=== PATIENT | male | born 1990 | race Two or more races ===

== ENCOUNTER 2016-06-07 11:25 | Emergency (ER) | payer MEDICAID, OTHER ==
[~2016-06-07] VITALS: Ht 180.3 cm; Wt 124.7 kg
[2016-06-07 12:10] VITALS: BP 149/80
== END 2016-06-07 12:37 | disposition home or self-care (01) ==
LOC: ER 11:29
DX: M76.9 Unspecified enthesopathy, lower limb, excluding foot (principal)

== ENCOUNTER 2016-08-23 02:06 | Emergency (ER) | payer MEDICAID ==
[~2016-08-23] VITALS: Ht 180.3 cm; Wt 136.1 kg
[2016-08-23] MEDS ORDERED: IBUPROFEN 800 MG TAB PO ONE ×2 (02:15→03:30)
[2016-08-23] MEDS ORDERED: KETOROLAC TROMETH 60MG/2ML VIAL IM ONE ×2 (03:54→04:15)
[2016-08-23 04:15] VITALS: BP 133/82
== END 2016-08-23 03:59 | disposition home or self-care (01) ==
LOC: ER 02:10
DX: S83.91XA Sprain of unspecified site of right knee, initial encounter (principal); G89.29 Other chronic pain; X58.XXXA Exposure to other specified factors, initial encounter; Y93.89 Activity, other specified; Y92.89 Other specified places as the place of occurrence of the external cause; Y99.8 Other external cause status
CPT/HCPCS: 73562; 96372; 99284; J1885

== ENCOUNTER 2016-12-03 15:10 | Emergency (ER) | payer MEDICAID ==
[~2016-12-03] VITALS: Ht 180.3 cm; Wt 136.1 kg
[2016-12-03 15:15] VITALS: BP 143/95
== END 2016-12-03 18:10 | disposition home or self-care (01) ==
LOC: ER 15:10
DX: S61.411A Laceration without foreign body of right hand, initial encounter (principal); W22.8XXA Striking against or struck by other objects, initial encounter; Y93.89 Activity, other specified; Y92.89 Other specified places as the place of occurrence of the external cause; Y99.8 Other external cause status
CPT/HCPCS: 12002

== ENCOUNTER 2016-12-05 09:54 | Emergency (ER) | payer MEDICAID ==
[~2016-12-05] VITALS: Ht 180.3 cm; Wt 136.1 kg
[2016-12-05 10:30] VITALS: BP 117/78
== END 2016-12-05 10:37 | disposition home or self-care (01) ==
LOC: ER 09:54
DX: S61.411D Laceration without foreign body of right hand, subsequent encounter (principal); X58.XXXD Exposure to other specified factors, subsequent encounter; Y99.8 Other external cause status; Y92.89 Other specified places as the place of occurrence of the external cause

== ENCOUNTER 2016-12-13 10:29 | Emergency (ER) | payer MEDICAID ==
[~2016-12-13] VITALS: Ht 180.3 cm; Wt 136.1 kg
[2016-12-13 11:15] VITALS: BP 125/78
== END 2016-12-13 11:30 | disposition home or self-care (01) ==
LOC: ER 10:29
DX: S61.411D Laceration without foreign body of right hand, subsequent encounter (principal); X58.XXXD Exposure to other specified factors, subsequent encounter